=== PATIENT | female | born 1960 | race Caucasian/White ===

== ENCOUNTER 2021-12-28 07:04 | Day surgery (SDC) | payer BC ==
[~2021-12-28 07:04] MED LIST: Sodium Chloride 0.9% 1,000 ML IV SCH; Sodium Chloride 0.9% 10 ML Syringe FLUSH PRN
[2021-12-28] MEDS ORDERED: Propofol 200 MG/20 ML SDV IV ONE (07:05)
[2021-12-28] MEDS ORDERED: 50% Dextrose in Water 50 ML Syringe IVPUSH ONE (07:40)
[2021-12-28] MEDS ORDERED: 50% Dextrose in Water 50 ML Syringe ONE (07:42)
[2021-12-28] MEDS ORDERED: Midazolam 1 MG/ML 2 ML SDV ONE (08:02)
[2021-12-28] MEDS ORDERED: Propofol 200 MG/20 ML SDV ONE ×2 (08:02→08:36)
[2021-12-28] MEDS ORDERED: Lidocaine 2% 100 MG/5 ML Syringe ONE (08:03)
[2021-12-28] MEDS ORDERED: Glycopyrrolate 0.2 MG/ML SDV ONE (08:06)
== END 2021-12-28 10:40 | disposition home or self-care (01) ==
LOC: KA.SDS 07:04
PROVIDERS: ATTEND Family Medicine
DX: K29.50 Unspecified chronic gastritis without bleeding (principal); K44.9 Diaphragmatic hernia without obstruction or gangrene; I10 Essential (primary) hypertension; D50.0 Iron deficiency anemia secondary to blood loss (chronic); E11.9 Type 2 diabetes mellitus without complications; G47.33 Obstructive sleep apnea (adult) (pediatric); K21.9 Gastro-esophageal reflux disease without esophagitis; M19.90 Unspecified osteoarthritis, unspecified site; E78.5 Hyperlipidemia, unspecified; F32.A Depression, unspecified; E66.9 Obesity, unspecified; M17.12 Unilateral primary osteoarthritis, left knee; Z20.822 Contact with and (suspected) exposure to COVID-19; Z79.4 Long term (current) use of insulin; Z88.2 Allergy status to sulfonamides; Z88.8 Allergy status to other drugs, medicaments and biological substances; Z79.891 Long term (current) use of opiate analgesic; Z79.899 Other long term (current) drug therapy; Z79.84 Long term (current) use of oral hypoglycemic drugs; Z90.49 Acquired absence of other specified parts of digestive tract; Z98.890 Other specified postprocedural states; Z87.891 Personal history of nicotine dependence
CPT/HCPCS: 00813; 82947; J2250; J2704; J3490; J7030